=== PATIENT | female | born 1945 | race Caucasian/White ===

== ENCOUNTER 2020-09-03 16:24 | Inpatient (IN) | payer OTHER ==
[~2020-09-03] VITALS: Ht 162.6 cm; Wt 105.7 kg
--- NOTE | 2020-09-03 16:42 | NUR ---
EVANGELINA FROM [facility] AFTER PTS ABDOMINAL INCISON FROM SURGERY ON THE 8TH BEGAN HURTING AND SHOWING REDNESS. PT ALSO STARTED HAVING TEMPERATURES. PER PT SHE AHD VALVE TISSUE REMOVED BY DR. MARTINEZ. PT ATTACHED TO MONITORS. VSS. MARQUIS. AWAITING ORDERS Addendum: 09/03/20 at 1709 by SHARON EVANGELINA FROM [facility] AFTER PTS ABDOMINAL INCISON FROM SURGERY ON THE 8TH BEGAN HURTING AND SHOWING REDNESS. PT ALSO STARTED HAVING TEMPERATURES. PER PT SHE AND SHE HAD NECROTIC INTESTINE REMOVED BY DR. MARTINEZ.
--- NOTE | 2020-09-03 17:09 | NUR ---
DR. OCAMPO TO BEDSIDE FOR EVALUATION. SANDI. KANDIS.
[2020-09-03] MEDS ORDERED: HYDROmorphone 1 MG/ML, 1ML INJ IV ONE (17:30)
[2020-09-03] MEDS ORDERED: ONDANSETRON 2MG/ML, 2ML IVPush ONE (17:30)
[2020-09-03] MEDS ORDERED: SODIUM CHLORIDE 0.9% 1,000ML IVBOLUS ONE (17:30)
[2020-09-03] MEDS ORDERED: PIPERACILLIN/TAZO 3.375 GM in DEXTROSE 5% 50 ML IVPB ONE (17:30)
[2020-09-03] MEDS ORDERED: PLEASE ENTER ALLERGIES MC SCH (17:30)
[2020-09-03] MEDS ORDERED: ONDANSETRON 2MG/ML, 2ML ONE (17:33)
[2020-09-03] MEDS ORDERED: HYDROmorphone 1 MG/ML, 1ML INJ ONE (17:33)
[2020-09-03 17:41] LABS: BASOPHILS % (AUTO) 1 % (0-1); EOSINOPHILS % (AUTO) 0 % (1-7); LYMPHOCYTES % (AUTO) 6 % (22-44); MEAN CORPUSCULAR HEMOGLOBIN 31.9 pg (27.0-34.8); MEAN CORPUSCULAR HGB CONC 33.6 g/dL (32.4-35.8); MEAN PLATELET VOLUME 8.2 fL (7.4-10.4); MONOCYTES % (AUTO) 12 % (2-9); NEUTROPHILS % (AUTO) 82 % (42-75); PLATELET COUNT 233 x10^3/uL (130-400); RED BLOOD COUNT 2.78 x10^6/uL (3.82-5.3); RED CELL DISTRIBUTION WIDTH 13.1 % (9.6-15.2)
--- NOTE | 2020-09-03 17:46 | NUR ---
PT STATES SHE HAS TROUBLE WITH RETENTION. BLADDER SCAN SHOWS 500 CC OF URINE. PT STATES SHE CANNOT VOID. MD AWARE.
[2020-09-03 17:49] LABS: ALANINE AMINOTRANSFERASE 45 U/L (12-78); ALBUMIN 1.6 g/dL (3.4-5.0); ANION GAP 5 mmol/L (5-15); CALCIUM 8.1 mg/dL (8.5-10.1); CHLORIDE 100 mmol/L (98-107); CREATININE 0.62 mg/dL (0.55-1.02)
[2020-09-03 17:51] LABS: ALKALINE PHOSPHATASE 169 U/L (45-117); BILIRUBIN,TOTAL 0.6 mg/dL (0.2-1.0); TOTAL PROTEIN 6.2 g/dL (6.4-8.2)
--- NOTE | 2020-09-03 18:25 | NUR ---
PT TO CT.
[2020-09-03 18:28] LABS: MICROSCOPIC NOT IND
[2020-09-03] MEDS ORDERED: OMNIPAQUE 350 MG/ML, 100ML BOTTLE ONE (18:53)
[2020-09-03] MEDS ORDERED: ACETAMINOPHEN 500 MG TABLET PO ONE (19:30)
--- NOTE | 2020-09-03 19:38 | NUR ---
1ST CONTACT C PT. RESTING ON CART. PIV TO RAC D/C, UNABLE TO FLUSH. PIV TO R WRIST INFUSING WELL. 800CC YELLOW URINE EMPTIED. WILL CTM. AFEBRILE.
--- NOTE | 2020-09-03 20:50 | NUR ---
DEMARIO RN: SPOKE WITH JIMENA ZHANG AT THE [facility], PT HAS [employer]. THEY ARE NOT ABLE TO TRANSFER TONIGHT, BUT WILL REEVALUATE IN THE AM.
[2020-09-03] MEDS ORDERED: TEMAZEPAM 15 MG CAPSULE PO PRN (22:00)
[2020-09-03] MEDS ORDERED: DOCUSATE 100 MG CAPSULE PO PRN (22:00)
[2020-09-03] MEDS ORDERED: ENALAPRILAT 1.25 MG/ML, 2ML IVPush PRN (22:00)
[2020-09-03] MEDS ORDERED: GUAIFENESIN/DM 200-20MG, 10ML UDC PO PRN (22:00)
[2020-09-03] MEDS ORDERED: ONDANSETRON 2MG/ML, 2ML IVPush PRN (22:00)
[2020-09-03] MEDS: LACTATED RINGERS 1,000 ML IV SCH (22:11)
[2020-09-03] MEDS: METHOCARBAMOL 500 MG TABLET PO PRN (22:22)
[2020-09-03 23:11] VITALS: BP 105/58
[2020-09-04] MEDS: PIPERACILLIN/TAZO 3.375 GM in DEXTROSE 5% 50 ML IVPB SCH ×2 (00:58→10:23)
[2020-09-04 01:46] VITALS: BP 115/57
[2020-09-04] MEDS ORDERED: UMEC1DIS PO (01:55)
[2020-09-04] MEDS ORDERED: FURO40TA6 PO (01:55)
[2020-09-04] MEDS ORDERED: METO-282 PO (01:55)
[2020-09-04] MEDS ORDERED: FLUT100B INH (01:55)
[2020-09-04] MEDS ORDERED: LISI20TA21 PO (01:55)
[2020-09-04] MEDS: METHOCARBAMOL 500 MG TABLET PO PRN ×2 (05:25→13:17)
[2020-09-04 05:39] LABS: BASOPHILS % (AUTO) 1 % (0-1); EOSINOPHILS % (AUTO) 1 % (1-7); LYMPHOCYTES % (AUTO) 11 % (22-44); MEAN CORPUSCULAR HEMOGLOBIN 32.1 pg (27.0-34.8); MEAN CORPUSCULAR HGB CONC 33.4 g/dL (32.4-35.8); MONOCYTES % (AUTO) 12 % (2-9); NEUTROPHILS % (AUTO) 75 % (42-75); PLATELET COUNT 193 x10^3/uL (130-400); RED BLOOD COUNT 2.37 x10^6/uL (3.82-5.3)
[2020-09-04 05:50] LABS: ANION GAP 4 mmol/L (5-15); CALCIUM 7.8 mg/dL (8.5-10.1); CHLORIDE 105 mmol/L (98-107)
[2020-09-04 05:52] LABS: CREATININE 0.48 mg/dL (0.55-1.02)
[2020-09-04 06:55] VITALS: BP 122/42
[2020-09-04] MEDS: ALBUTEROL/IPRATROPIUM 2.5MG/0.5MG, 3 ML NPPB SCH ×3 (07:19→14:18)
[2020-09-04] MEDS ORDERED: METOPROLOL SUCCINATE 25 MG TAB.ER.24H PO SCH (09:00)
[2020-09-04] MEDS ORDERED: FUROSEMIDE 40 MG TABLET PO SCH (09:00)
[2020-09-04] MEDS ORDERED: BUDESONIDE 0.5 MG/2 ML INHA INH SCH (09:00)
[2020-09-04] MEDS ORDERED: LISINOPRIL 20 MG TABLET PO SCH (09:00)
[2020-09-04] MEDS: LACTATED RINGERS 1,000 ML IV SCH (10:23)
[2020-09-04] MEDS ORDERED: MIDAZOLAM 1 MG/ML, 5ML ONE ×2 (14:15)
[2020-09-04] MEDS ORDERED: FLUMAZENIL 0.1 MG/1 ML, 5ML ONE (14:15)
[2020-09-04] MEDS ORDERED: FENTANYL PF 100 MCG/2ML ONE (14:15)
[2020-09-04] MEDS ORDERED: NALOXONE 1 MG/ML, 2ML ONE (14:15)
[2020-09-04 14:20] VITALS: BP 122/53
[2020-09-04] MEDS ORDERED: LIDOCAINE 1%, 20ML ONE (14:22)
[2020-09-04 15:57] VITALS: BP 124/66
[2020-09-04] MEDS ORDERED: TEMA15CA6 PO (16:00)
[2020-09-04] MEDS ORDERED: PIPE3.375 IV (16:00)
== END 2020-09-04 17:50 | disposition short-term general hospital (02) | DRG 862 ==
LOC: ED 19:43 → EDIP 20:06 → 4NE 21:44
PROVIDERS: ADMIT Internal Medicine; ATTEND Internal Medicine
PROC: 0T9B70Z Drainage of Bladder with Drainage Device, Via Natural or Artificial Opening (ICD-10-PCS; principal; 2020-09-03)
PROC: 0W9F3ZZ Drainage of Abdominal Wall, Percutaneous Approach (ICD-10-PCS; 2020-09-04)
DX: T81.44XA Sepsis following a procedure, initial encounter (principal); K65.1 Peritoneal abscess; L03.311 Cellulitis of abdominal wall; E87.1 Hypo-osmolality and hyponatremia; J96.11 Chronic respiratory failure with hypoxia; Z68.41 Body mass index [BMI] 40.0-44.9, adult; Z20.822 Contact with and (suspected) exposure to COVID-19; I10 Essential (primary) hypertension; D64.9 Anemia, unspecified; F41.9 Anxiety disorder, unspecified; J44.9 Chronic obstructive pulmonary disease, unspecified; E66.9 Obesity, unspecified; Z88.6 Allergy status to analgesic agent; Z90.710 Acquired absence of both cervix and uterus; Z82.49 Family history of ischemic heart disease and other diseases of the circulatory system; Z88.5 Allergy status to narcotic agent; Z79.899 Other long term (current) drug therapy; Y83.8 Other surgical procedures as the cause of abnormal reaction of the patient, or of later complication, without mention of misadventure at the time of the procedure; Y92.89 Other specified places as the place of occurrence of the external cause
CPT/HCPCS: 36415; J3490; J7626; 49405; 49406; 71045; 74177; 80048; 80053; 81003; 83605; 83690; 83735; 84100; 85025; 87040; 87070; 87075; 87077; 87102; 87205; 87635; 93005; 94640; 96374; 96375; 99156; 99157; C1894; G0378; J1170; J2250; J2405; J2543; J3010; Q9967; C1729; C1769; J2310; J7030; J7120